=== PATIENT | male | born 1960 | race Caucasian/White ===

== ENCOUNTER 2023-04-02 10:04 | Emergency (ER) | payer MEDICAID, OTHER ==
[~2023-04-02] VITALS: Ht 180.3 cm; Wt 122.5 kg
[2023-04-02 10:30] VITALS: BP 127/75; PULSE 84; RESP 17; TEMP 97.8; O2SAT 96
[2023-04-02] MEDS ORDERED: KETOROLAC 60 MG/2 ML VIAL IM ONE (12:00)
[2023-04-02 12:12] VITALS: O2SAT 96
[2023-04-02] MEDS ORDERED: IBUP-2213 PO (12:19)
[2023-04-02] MEDS ORDERED: ACET-8905 PO (12:19)
[2023-04-02 13:17] VITALS: BP 127/75; PULSE 84; RESP 17; TEMP 97.8; O2SAT 96
== END 2023-04-02 13:18 | disposition home or self-care (01) ==
LOC: MED 10:04
DX: S30.0XXA Contusion of lower back and pelvis, initial encounter (principal); I10 Essential (primary) hypertension; Z79.899 Other long term (current) drug therapy; X58.XXXA Exposure to other specified factors, initial encounter; Y93.89 Activity, other specified; Y92.89 Other specified places as the place of occurrence of the external cause; Y99.8 Other external cause status
CPT/HCPCS: 72220; 96372; 99283; J1885

== ENCOUNTER 2023-09-07 21:23 | Emergency (ER) | payer MEDICAID ==
[~2023-09-07] VITALS: Ht 180.3 cm; Wt 113.4 kg
[~2023-09-07 21:23] MED LIST: ACET-8905 PO; IBUP-2213 PO
[2023-09-07 21:27] VITALS: BP 144/90; PULSE 70; RESP 16; TEMP 98.4; O2SAT 96
[2023-09-07] MEDS: KETOROLAC 60 MG/2 ML VIAL IM ONE (22:40)
[2023-09-08 01:40] VITALS: BP 136/88; PULSE 78; RESP 18; TEMP 98.2; O2SAT 96
== END 2023-09-08 01:33 | disposition home or self-care (01) ==
LOC: MED 21:23
DX: M54.50 Low back pain, unspecified (principal); I10 Essential (primary) hypertension; F03.90 Unspecified dementia, unspecified severity, without behavioral disturbance, psychotic disturbance, mood disturbance, and anxiety; Z79.899 Other long term (current) drug therapy; Z88.0 Allergy status to penicillin
CPT/HCPCS: 96372; 99283; J1885